=== PATIENT | female | born 1970 | race Caucasian/White ===

== ENCOUNTER 2024-01-02 09:04 | Emergency (ER) | payer BC, SELFPAY ==
[2024-01-02 09:07] VITALS: BP 133/79
--- NOTE | 2024-01-02 09:42 | ED.GENMED ---
History of Present Illness
General
Chief Complaint: Skin Surface Trauma
Source: patient
Time Seen by Provider: 01/02/24 09:20
History of Present Illness
History of Present Illness:
53yoF presenting for evaluation of a left thigh laceration that was sustained 2 hours ago. Patient sat on a shoe rack when the shoe rack broke and a screw caused a laceration to her left lateral thigh. She applied ice to the wound prior to arrival.
Bleeding is controlled. Last Tdap in 2013.
Past History
Past History
ED Past Medical History: Asthma and Hypothyroidism
ED Past Surgical History: None and
Patient has exhibited threatening behavior?: No
Social History
Living: with family
Phy Exam
General Physical Exam
General Presentation: well appearing and no apparent distress
General age: appears stated age
General Skin: warm and dry
General Habitus: normal
General Mental: alert
ENT Exam
ENT Exam: normocephalic
Pulmonary Exam
Pulmonary Exam: no respiratory distress
Tha Coma Scale
Eye Opening: Spontaneous
Verbal Response: Oriented
Motor Response: Obeys Commands
GCS Total Score: 15
Skin Exam
Skin Exam: warm/dry and other (Approx 12cm linear superficial laceration to the L lateral thigh through epidermal layer. Dermis intact. No active bleeding. )
Psychiatric Exam
Psychiatric Exam: normal mood/affect
Course
Orders/Labs/Results
Orders:
Orders
01/02/24 09:41
Ibuprofen [Motrin] 600 mg PO NOW STA
Tetanus/Diphth/Acelpertussis [Adacel] 0.5 ml IM .ONCE ONE
Nursing to Place Non Medication Order As Directed
Physician Order: Please place ABD pad/dressing over L thigh wound
Above order entered?: Yes
Vital Signs
Initial and Last Documented VS:
Initial Vital Signs
Temp Pulse Resp BP Pulse Ox
98.9 F 70 18 133/79 98
01/02/24 09:07 01/02/24 09:07 01/02/24 09:07 01/02/24 09:07 01/02/24 09:07
Last Documented Vital Signs
Temp Pulse Resp BP Pulse Ox
98.9 F 70 18 133/79 98
01/02/24 09:07 01/02/24 09:07 01/02/24 09:07 01/02/24 09:07 01/02/24 09:07
Procedures
Laceration Closure
Left Upper Leg:
Status of Wound: clean
Description of Wound Edges: sharp
Preparation: cleaned with saline
Revision/Debridement: routine- no revision
Wound exploration: explored to base- no FB
Type of Closure: other (Steri-strips)
MDM/Problems Addressed
Differential Diagnosis Includes:
53yoF here with a L thigh laceration after being cut with a screw after sitting on a shoe rack that broke. VSS. There is a superficial laceration on exam with intact dermis. No active bleeding. Laceration does not require suture repair. Wound was
cleaned with saline and steri-strips applied. Home wound care discussed. Advised return to the ED with any signs of infection. She was discharged in stable condition.
*Critical Care Note
Total Time (30-74mins, 75-104mins- exclusive of procedures): Not Applicable
ED Attending Note
-
Portions of this chart may have been created with voice recognition software.� Occasional wrong word or��sound alike� substitutions may have occurred due to the inherent limitations of voice recognition software.
Discharge Plan
Departure
Patient Disposition: Home (Routine Discharge)
Date of Disposition: 01/02/24
Time of Disposition: 09:45
Patient with high blood pressure during this ER visit?: No
Discharge Problem:
Laceration of left thigh
Instructions: Taking care of cuts, scrapes, and puncture wounds
Referrals:
Alfreda Marroquin, [Family Provider] -
Activity Restrictions/Additional Instructions:
Keep wound clean and dry. The steri-strips should come off on their own in a few days. You may remove the steri-strips after 1 week if they are still on.
Take Tylenol and ibuprofen for pain.
Return to the ER with any signs of infection (redness, drainage, warmth, fevers).
Interventions
Interventions:
*Risk Screen - Suicide Last Done: 01/02/24 09:07
*General Assessment Last Done: 01/02/24 09:07
*Neglect/Abuse Screening Last Done: 01/02/24 09:07
ED- Fall Risk Assessment Last Done: 01/02/24 10:21
*ED COVID-19 Vaccine History Last Done: 01/02/24 10:21
*Nursing Disposition Last Done: 01/02/24 10:23
ED-Skin Assessment Last Done: 01/02/24 10:21
Discharge Date and Time
Discharge Date/Time: 01/02/24 10:24
Print Language: K[place]
[2024-01-02] MEDS: MOTRIN 600 MG PO (10:08)
[2024-01-02] MEDS: ADACEL 0.5 ML IM (10:09)
== END 2024-01-02 10:24 | disposition home or self-care (01) ==
LOC: EMR 09:04
PROVIDERS: EMERGENCY PHYSICIAN Emergency Medicine; FAMILY PHYSICIAN Family Medicine
DX: S71.112A Laceration without foreign body, left thigh, initial encounter (principal); W26.8XXA Contact with other sharp object(s), not elsewhere classified, initial encounter; Z23 Encounter for immunization
CPT/HCPCS: 99282; 90471; 90715

== ENCOUNTER 2024-01-23 19:25 | Emergency (ER) | payer BC, SELFPAY ==
[2024-01-23 19:27] VITALS: BP 158/90
[2024-01-23 19:58] LABS: % Basophils 1.1 % (0-2); % Eosinophils 3.5 % (0-6); % Immature Granulocytes 0.3 % (0-0.5); % Lymphocytes 34.1 % (20.5-51.1); % Monocytes 6.6 % (1.7-9.3); % Neutrophils 54.4 % (42.2-75.2); Absolute Basophils 0.1 10^3/uL (0-0.2); Absolute Eosinophils 0.3 10^3/uL (0-0.7); Absolute Monocytes 0.6 10^3/uL (0.1-0.6); Absolute Neutrophils 4.8 10^3/uL (1.4-6.5); Hematocrit 40.6 % (37.0-47.0); Hemoglobin 13.8 g/dL (12.0-16.0); Mean Corpuscular Hgb 32.2 pg (27.0-31.0); Mean Corpuscular Volume 94.9 fL (81.0-99.0); Mean Platelet Volume 11.2 fL (7.4-10.4); Nucleated Red Blood Cells % 0 %; Platelet Count 270 10^3/uL (130-400); Red Blood Cell Count 4.28 10^6/uL (4.20-5.40); Red Cell Dist. Width 11.3 % (11.5-14.5); White Blood Cell Count 8.9 10^3/uL (4.8-10.8)
[2024-01-23 20:11] LABS: ALT (SGPT) 28 U/L (0-35); AST (SGOT) 24 U/L (14-36); Albumin 5.2 g/dl (3.5-5.0); Alkaline Phosphatase 46 U/L (38-126); Blood Urea Nitrogen 16 mg/dl (7-17); Calcium 9.9 mg/dl (8.4-10.2); Carbon Dioxide 27 mmol/L (22-30); Glucose 96 mg/dl (70-99); Total Bilirubin 0.6 mg/dl (0.2-1.3); eGFR > 60.00
[2024-01-23 20:48] LABS: Chloride 104 mmol/L (98-107); Potassium 4.5 mmol/L (3.5-5.1); Sodium 142 mmol/L (135-145)
--- NOTE | 2024-01-23 22:02 | ED.GENMED ---
History of Present Illness
<MATTHIAS Balderrama - Last Filed: 01/24/24 05:52>
General
Chief Complaint: Dizziness
Source: patient
Time Seen by Provider: 01/23/24 22:01
History of Present Illness
History of Present Illness:
A 53-year-old female with a past medical history of TIA in 2021, HLD, presents to the emergency department for dizziness this evening. She states that similar symptoms, like dizziness and spinning, occurred during her TIA. However during this
presentation she states she felt dizzy without a spinning sensation and that the ground 'slipped out from underneath her' so she slowly sat down. She also admits to heart palpitations which have occurred intermittently prior to mission, and during
admission. She denies any head injuries due to her fall, but states that she thinks she hit her head earlier on in the day 'maybe on my steering wheel'. She also admits to a fullness sensation of her ears and mild light sensitivity which has
improved since admission.She denies nausea vomiting, headache, chest pain, shortness of breath, abdominal pain, peripheral paresthesias.
She admits to a CT scan about 2 months ago which resulted in possible left subclavian vein abnormality 'possibly a clot'. She also admits to a intermittent history of hyperlipidemia which is sometimes normal or abnormal during her routine screening,
therefore she has not been placed on any daily LDL lowering medications.
Past History
<MATTHIAS Balderrama - Last Filed: 01/24/24 05:52>
Past History
ED Past Medical History: Asthma and Hypothyroidism
ED Past Surgical History: None and
Patient has exhibited threatening behavior?: No
Social History
Living: with family
Review of Systems
<MATTHIAS Balderrama - Last Filed: 01/24/24 05:52>
Review of Systems
Allergies reviewed?: Yes
All Other Systems: ROS reviewed and negative except as documented in HPI and ROS
Phy Exam
<Lennox Domingo [facility] - Last Filed: 01/24/24 05:52>
General Physical Exam
General Presentation: well appearing and no apparent distress
General Skin: warm and dry
General Habitus: normal
General Mental: alert
General Hydration: appears well hydrated
ENT Exam
ENT Exam: EOMI (Mildly tender with left lateral gaze) and TM's normal
Eye Exam
Eye Exam: PERRL
Cardiovascular Exam
Cardiovascular Exam: regular rate/rhythm, no edema, no gallop, no murmur and normal peripheral pulses
Pulmonary Exam
Pulmonary Exam: lungs clear, no respiratory distress, no rales, no crackles, no rhonchi, no wheezing and no cough
Neurological Exam
Neurological Exam: alert and oriented x3
Musculoskeletal Exam
Musculoskeletal Exam: full ROM
Skin Exam
Skin Exam: normal color, warm/dry and no rash
Course
<Lennox Domingo [facility] - Last Filed: 01/24/24 05:52>
Orders/Labs/Results
Orders:
Orders
01/23/24 19:28
Electrocardiogram (*1) Urgent
Reason for Study: Vertigo / Dizzy
EKG- Treatment ONCE
01/23/24 19:38
CT Head W/o Iv Contrast Urgent
Comment:
Reason For Exam: dizziness
01/23/24 19:50
CMP [Comprehensive Metabolic Panel] Urgent
Complete Blood Count/With Diff Urgent
01/23/24 22:50
Orthostatic VS- Treatment ONCE
0.9% Sodium Chloride 1000 ml [Nss] 1,000 ml IV BOLUS
01/23/24 22:51
Troponin I Urgent
Abnormal Lab Results
01/23/24
19:50
MCH 32.2 H pg
(27.0-31.0)
RDW 11.3 L %
(11.5-14.5)
MPV 11.2 H fL
(7.4-10.4)
Albumin 5.2 H g/dl
(3.5-5.0)
01/23/24 19:50
01/23/24 19:50
Vital Signs
Initial and Last Documented VS:
Initial Vital Signs
Temp Pulse Resp BP Pulse Ox
98.7 F 86 15 158/90 98
01/23/24 19:27 01/23/24 19:27 01/23/24 19:27 01/23/24 19:27 01/23/24 19:27
Last Documented Vital Signs
Temp Pulse Resp BP Pulse Ox
98.3 F 73 22 122/72 96
01/23/24 23:20 01/24/24 00:00 01/24/24 00:00 01/24/24 00:00 01/24/24 00:00
<Cheko Rashid, DO - Last Filed: 01/24/24 00:32>
Orders/Labs/Results
Orders:
Orders
01/23/24 19:28
Electrocardiogram (*1) Urgent
Reason for Study: Vertigo / Dizzy
EKG- Treatment ONCE
01/23/24 19:38
CT Head W/o Iv Contrast Urgent
Comment:
Reason For Exam: dizziness
01/23/24 19:50
CMP [Comprehensive Metabolic Panel] Urgent
Complete Blood Count/With Diff Urgent
01/23/24 22:50
Orthostatic VS- Treatment ONCE
0.9% Sodium Chloride 1000 ml [Nss] 1,000 ml IV BOLUS
01/23/24 22:51
Troponin I Urgent
Abnormal Lab Results
01/23/24
19:50
MCH 32.2 H pg
(27.0-31.0)
RDW 11.3 L %
(11.5-14.5)
MPV 11.2 H fL
(7.4-10.4)
Albumin 5.2 H g/dl
(3.5-5.0)
01/23/24 19:50
01/23/24 19:50
Vital Signs
Initial and Last Documented VS:
Initial Vital Signs
Temp Pulse Resp BP Pulse Ox
98.7 F 86 15 158/90 98
01/23/24 19:27 01/23/24 19:27 01/23/24 19:27 01/23/24 19:27 01/23/24 19:27
Last Documented Vital Signs
Temp Pulse Resp BP Pulse Ox
98.3 F 73 22 122/72 96
01/23/24 23:20 01/24/24 00:00 01/24/24 00:00 01/24/24 00:00 01/24/24 00:00
<MATTHIAS Balderrama - Last Filed: 01/24/24 05:52>
MDM/Problems Addressed
Differential Diagnosis Includes:
Peripheral vertigo, A-fib, stroke,
MDM/Problems Addressed:
Stroke is unlikely due to CT scan demonstrating no acute intracranial abnormalities.
<MATTHIAS Balderrama - Last Filed: 01/24/24 05:52>
*Critical Care Note
Total Time (30-74mins, 75-104mins- exclusive of procedures): Not Applicable
<MATTHIAS Balderrama - Last Filed: 01/24/24 05:52>
Update Note
Update Note:
01/24/2024 : [facility] PA: Just spoke with the patient, agreeable to discharge with follow-up to neurology. Symptoms improved with IV fluid administration.
ED Attending Note
<MATTHIAS Balderrama - Last Filed: 01/24/24 05:52>
-
Portions of this chart may have been created with voice recognition software.� Occasional wrong word or��sound alike� substitutions may have occurred due to the inherent limitations of voice recognition software.
<Cheko Rashid DO - Last Filed: 01/24/24 00:32>
ED Attending Note
Patient seen and examined by attending physician: Yes
I performed the substantive portion of visit, reviewed & personally made and approve the management plan that is documented in note by myself or JUSTIN.: Yes
ED Attending Note:
This a pleasant 53-year-old female who presents with dizziness. She was walking her dog and she felt like the room was spinning. She sat down. She denies head injury or loss of consciousness. She states that this is similar to her previous
occurrence that was diagnosed as a TIA. She does follow with neurology at [facility]. On December 19, 2023, she had a CT angiogram of her head and neck. 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
previous. Denies any chest pain or shortness of breath but states that she did have some palpitations throughout the day today. She reports that this is common. She denies any change in caffeine intake today. Patient was seen in conjunction with
the PA student. I have reviewed and agree with the history and treatment plan presented. On my independent physical exam, patient is awake, alert, and oriented x3 no acute distress. Heart is regular rate and rhythm. Lungs are clear to
auscultation bilaterally without wheezes rales or rhonchi present. Moves all 4 extremities. Skin is warm and dry. She is neurologically intact without any cerebellar dysfunction
Discharge Plan
Departure
Patient Disposition: Home (Routine Discharge)
Date of Disposition: 01/24/24
Time of Disposition: 00:30
Patient with high blood pressure during this ER visit?: Yes
Condition: Good
Discharge Problem:
Vertigo
Instructions: Vertigo (a Type of Dizziness) (DC), BLOOD PRESSURE
Prescriptions:
New
meclizine 25 mg tablet
25 mg PO BID PRN (Reason: dizziness) Qty: 10 0RF
Referrals:
Esvin Dewitt MD [Active] -
Alfreda Marroquin DO [Family Provider] -
Activity Restrictions/Additional Instructions:
It was a pleasure meeting you and taking part in your care. We hope for your continued healing and wellness.
Please read discharge instructions in their entirety. However, they are for general education and may not describe your exact diagnosis at discharge. Information on your ER visit and medical conditions were discussed with you along with appropriate
follow up information...
If indicated, please take your medications as instructed and indicated on discharge paperwork.
Please schedule a follow up appointment as directed. Call to schedule an appointment
Please return to the emergency department with ANY change in, persisting, or worsening of symptoms. If any of your symptoms do not improve, or persist, or become more severe within 6-12 hours, please return to the emergency department for further
care.
Please return to the emergency department if you develop a headache, neck pain/stiffness, fever greater than 100.4F, chest pain, shortness of breath, persistent nausea, vomiting, slurred speech, difficulty walking, numbness/tingling, weakness, signs
of infection or any other symptoms that are worrisome to you.
If you have any questions or concerns please do not hesitate to call the Hospital at or E-mail me directly at [email or web address]
Interventions
Interventions:
*Risk Screen - Suicide Last Done: 01/23/24 19:27
*General Assessment Last Done: 01/23/24 19:27
*Neglect/Abuse Screening Last Done: 01/23/24 22:23
*ED COVID-19 Vaccine History Last Done: 01/23/24 22:23
*Nursing Disposition Last Done: 01/24/24 00:54
ED- Neurological Assessment Last Done: 01/23/24 22:32
ED- Cardiac Assessment Last Done: 01/23/24 22:32
ED Swallowing Screen Last Done: 01/23/24 22:33
Discharge Date and Time
Discharge Date/Time: 01/24/24 00:55
Print Language: KITTITIAN
[2024-01-23 22:25] VITALS: BP 130/79
[2024-01-23] MEDS: NSS 1000 IV (22:52)
[2024-01-23 23:20] VITALS: BP 126/80
[2024-01-23 23:23] VITALS: BP 117/70; BP 137/87; BP 141/92; PULSE 64; PULSE 67; PULSE 77
[2024-01-23 23:37] LABS: Troponin I < 0.012 ng/ml
[2024-01-24] VITALS: BP 122/72
== END 2024-01-24 00:55 | disposition home or self-care (01) ==
LOC: EMR 19:25
PROVIDERS: Emergency Medicine; EMERGENCY PHYSICIAN Student in an Organized Health Care Education/Training Program; FAMILY PHYSICIAN Family Medicine
DX: R42 Dizziness and giddiness (principal); E78.00 Pure hypercholesterolemia, unspecified; E03.9 Hypothyroidism, unspecified; J45.909 Unspecified asthma, uncomplicated; W19.XXXA Unspecified fall, initial encounter; Y93.K1 Activity, walking an animal; Z86.73 Personal history of transient ischemic attack (TIA), and cerebral infarction without residual deficits
CPT/HCPCS: 99284; 70450; 80053; 84484; 85025; 93005

== ENCOUNTER 2024-02-01 17:23 | Outpatient (RCR) | payer BC, SELFPAY | END 2024-02-01 23:59 | disposition home or self-care (01) | LOC: RPT 17:23 | PROVIDERS: ATTENDING PHYSICIAN Family Medicine | DX: R42 Dizziness and giddiness (principal); Z73.6 Limitation of activities due to disability | CPT/HCPCS: 97112; 97163 ==